=== PATIENT | male | born 1945 | race Caucasian/White ===

== ENCOUNTER 2022-12-05 11:09 | Outpatient (NON) | payer MEDICARE, SELFPAY ==
[2022-12-05 11:29] LABS: Basophils Absolute Auto 0.03 K/mm3 (0.00-0.10); Basophils Percent Auto 0.4 % (0.0-1.0); Eosinophils Percent Auto 2.8 % (1.0-6.0); Hematocrit 47.2 % (37.0-46.0); Hemoglobin 15.7 g/dL (12.4-15.3); Immature Granulocyte Absolute 0.02 K/mm3 (0.00-0.00); Immature Granulocyte Percent A 0.3 % (0.0-0.0); Lymphocytes Absolute Auto 1.16 K/mm3 (1.10-4.50); Lymphocytes Percent Auto 16.4 % (18.0-42.0); Mean Corpuscular HGB Conc 33.3 g/dL (32.0-36.0); Mean Corpuscular Hemoglobin 31.2 pg (27.0-31.0); Mean Corpuscular Volume 93.8 fL (78.0-102.0); Mean Platelet Volume 10.1 fl (8.7-11.0); Monocytes Absolute Auto 0.61 K/mm3 (0.10-0.90); Monocytes Percent Auto 8.6 % (2.0-11.0); Neutrophils Percent Auto 71.5 % (50.0-70.0); Platelet Count Result 275 K/mm3 (150-420); Red Blood Count 5.03 M/mm3 (4.70-6.10); Red Cell Distribution Width 13.4 % (11.6-14.4); White Blood Count 7.1 K/mm3 (4.8-10.8)
[2022-12-05 11:52] LABS: Alanine Aminotransferase 8 U/L (16-63); Alkaline Phosphatase 98 U/L (46-116); Anion Gap 4 mmol/L (8-16); Aspartate Amino Transferase 11 U/L (15-37); Bilirubin,Total 0.3 mg/dL (0.00-1.00); Blood Urea Nitrogen 18 mg/dL (7-18); Calcium 8.4 mg/dL (8.5-10.1); Carbon Dioxide 29 mmol/L (21-32); Chloride 105 mmol/L (98-108); Estimated Glomerular Filt Rate > 60; Glucose 159 mg/dL (70-99); Osmolality Calculated 290 mOsm/kg (285-295); Potassium 3.8 mmol/L (3.5-5.1); Sodium 138 mmol/L (136-145)
== END 2022-12-05 11:10 | disposition home or self-care (01) ==
LOC: CHSLAB 11:15
PROVIDERS: Visit Provider Physician Assistant
DX: E11.9 Type 2 diabetes mellitus without complications (principal); R60.9 Edema, unspecified
CPT/HCPCS: 36415; 80053; 85025

== ENCOUNTER 2024-07-19 09:59 | Inpatient (IN) | payer MEDICARE, MEDICAID, SELFPAY ==
--- NOTE | ~2024-07-19 | CT_ITS ---
EXAMINATION: CT abdomen pelvis wo con DATE: 07/19/2024 11:35 INDICATION: Constipation. Tympanic abdomen. TECHNIQUE: Computed tomography (CT) of the abdomen and pelvis was performed without intravenous contr ast. Automated exposure control And iterative reconstruction technique were employed. The dose-length product was 963.89 mGy-cm. COMPARISON: None FINDINGS: Very small bilateral posterior layering pleural effusions. Consolidation in the dependent and basilar aspect of the bilateral lower lobes and favor atelectasis over pneumonia. Greater centrally calcifie d nodules in both lower lobes and in the right middle lobe consistent with old granulomatous disease. Heart size is normal. Atherosclerotic coronary artery calcifications and change of prior median ster notomy and coronary artery bypass grafting. Aortic valve calcification. No pericardial effusion. Bila teral gynecomastia. Multiple calcified gallstones in the dependent aspect of the otherwise normal gallbladder with no wal l thickening or pericholecystic inflammatory stranding to suggest acute cholecystitis. Tiny hepatic c alcification consistent with old granulomatous disease. Spleen, pancreas and bilateral adrenal glands are normal. There is mild bilateral hydroureteronephrosis extending to the fluid-filled bladder with out evident obstructing stone or mass. Diffuse mild wall thickening of the bladder accounting for the degree of distention. There is prostatomegaly. To moderate-sized bilateral fat-containing inguinal h ernias, direct on the right and with indirect and direct components on the left. Large amount of colonic stool extending to the rectum where there is a 8.4 x 8.3 similar ball of stoo l. There is diffuse colonic wall thickening with distal predominance consistent with colitis most lik loretta stercoral colitis with differential including infectious, inflammatory or ischemic colitis. Gas a nd fluid scattered throughout the small bowel without herlinda dilation to suggest obstruction but which can be seen with enteritis or ileus. No free intraperitoneal gas or fluid. No pathologically enlarge d abdominal or pelvic lymphadenopathy. Large lipoma in the visualized posterior compartment of the left upper thigh which measures approxima tely 15 x 8 cm which extends around the sciatic nerve proximal hamstring muscles and tendons insertin g mass effect upon the posterior margin of the abductor compartment. Chronic appearing compression fr actures at T7, L3 and L5, each with moderate anterior vertebral body height loss. There is prominent heterotopic ossification extending proximally along the left iliopsoas tendon with asymmetric mild at rophy of the left psoas muscle and moderate fatty atrophy of the left iliac is muscle suggesting hete rotopic ossification related to chronic partial tear. IMPRESSION: 1. Diffuse colonic wall thickening which along with the large amount of stool in the colon has a dist al predominance suggestive of constipation with stercoral colitis. Differential would include infecti ous, inflammatory or or less likely ischemic colitis. 2. Mild bilateral hydronephrosis along with mild wall thickening in the distended bladder suggesting sequela of chronic outlet obstruction from the enlarged prostate. 3. Cholelithiasis. 4. Very small bilateral pleural effusions with consolidation in the dependent lower lobes with appear ance favoring atelectasis over pneumonia. 5. Partially visualized. Large lipoma at the posterior proximal left thigh. 6. Moderate-sized bilateral fat-containing inguinal hernias. Reviewed, dictated and finalized at location A. IMPRESSION: 1. Diffuse colonic wall thickening which along with the large amount of stool i n the colon has a distal predominance suggestive of constipation with stercoral colitis. Dif
--- NOTE | ~2024-07-19 | US_ITS ---
EXAMINATION: US renal BI DATE: 07/19/2024 15:27 INDICATION: Acute kidney injury. TECHNIQUE: Multiple ultrasound grayscale images of the kidneys were obtained. COMPARISON: CT abdomen and pelvis 07/19/2024 FINDINGS: The right kidney measures 12.3 x 6.4 x 5.3 cm. The left kidney measures 9.6 x 4.8 x 4.4 cm. The kidne ys demonstrate normal parenchymal echogenicity. There is no hydronephrosis. The bladder is decompress ed by a Chambers catheter. IMPRESSION: 1. Normal kidney sizes. No hydronephrosis. Reviewed, dictated and finalized at location E.
--- NOTE | ~2024-07-19 | CT_ITS ---
EXAMINATION: CT brain wo con DATE: 07/20/2024 08:47 INDICATION: Encephalopathy. TECHNIQUE: Computed tomography (CT) of the head was performed without intravenous contrast. The mA wa s adjusted according to patient size. Iterative reconstruction technique was employed. The dose-lengt h product was 681.00 mGy-cm. COMPARISON: None FINDINGS: There are scattered areas of low attenuation in the cerebral white matter, which is within normal limits for the patient's age. There is no intracranial hemorrhage, acute infarction, or abnorm al intracranial mass lesion. The ventricles are normal in size. There is mild mucosal thickening in t he paranasal sinuses. The mastoid air cells are normal. The orbits are normal. There is cerumen in th e external auditory canals. IMPRESSION: 1. Normal aging brain. Reviewed, dictated and finalized at location A. IMPRESSION: 1. Normal aging brain.
[2024-07-19 09:58] VITALS: BP 133/81; PULSE 96; RESP 26; TEMP 36.6; O2SAT 96
--- NOTE | 2024-07-19 10:17 | ED.ABDPAIN ---
HPI - Abdominal Pain General Chief Complaint: Abdominal Pain Stated Complaint: abd pain Time Seen by Provider: 07/19/24 10:00 History of Present Illness HPI narrative: 78-year-old male presented to the emergency department for evaluation for abdominal distention and constipation. halfway states that the patient has not had a significant bowel movement since Saturday. Patient had been complaining of pain but is not complaining of any pain upon arrival to the emergency department. Patient is A&O x1 and is at his normal mental baseline per EMS and intermediate Related Data Home Medications Medication Instructions Recorded Confirmed Acidophilus 1 tablet BYMOUTH BID 07/19/24 07/19/24 acetaminophen 650 mg tablet 650 mg PO Q6H PRN Pain 07/19/24 07/19/24 albuterol sulfate 90 mcg/actuation 1 inh inhalation Q6H PRN Shortness 07/19/24 07/19/24 aerosol inhaler Of Breath aspirin 81 mg tablet 81 mg PO DAILY 07/19/24 07/19/24 atorvastatin 40 mg tablet 40 mg PO DAILY 07/19/24 07/19/24 benzonatate 100 mg capsule 100 mg PO Q8H PRN Cough 07/19/24 07/19/24 furosemide 40 mg tablet 40 mg PO DAILY 07/19/24 07/19/24 insulin glargine 100 unit/mL (3 18 unit subcut QPM 07/19/24 07/19/24 mL) subcutaneous pen (Lantus Solostar U-100 Insulin) insulin lispro 100 unit/mL 1 sliding scale dose subcut 07/19/24 07/19/24 subcutaneous solution (Humalog USEASDIRECTD U-100 Insulin) insulin lispro 100 unit/mL 4 unit subcut AC 07/19/24 07/19/24 subcutaneous solution (Humalog U-100 Insulin) melatonin 3 mg tablet 3 mg PO HS 07/19/24 07/19/24 Allergies Allergy/AdvReac Type Severity Reaction Status Date / Time No Known Allergies Allergy Verified 07/19/24 11:36 Review of Systems Review of Systems: ROS unobtainable: Yes unobtainable due to medical condition PMFSH Past Medical History Medical History Hyperlipidemia Insulin dependent type 2 diabetes mellitus Social History Social History (Updated 07/19/24 @ 13:39 by Meena Perez PA-C) Social History: Surrogate medical decision maker: Code status: Do not resuscitate. Smoking status: Unknown if ever smoked Alcohol intake: never Substance use: never Substance use type: does not use Spiritual care concerns: No Exam Narrative: APPEARANCE: Well appearing, no pain, no distress, well-nourished. HEAD: normocephalic, atraumatic. EYES: PERRLA/EOMI, conjunctivae clear. NOSE: Normal no drainage EARS:TMS clear with good light reflex. THROAT: Pharynx clear, no exudate. NECK: Supple. No adenopathy, no masses. RESPIRATORY: Airway patent, respirations nonlabored. Clear to auscultation bilaterally, no rales, rhonchi, wheezing. CARDIOVASCULAR: Regular rate and rhythm without murmurs rubs or gallops. ABDOMINAL: Tympanic abdomen, nontender to, no peritonitis Rectal exam: Large stool ball. Large amount of stool was digitally disimpacted MUSCULOSKELETAL: Moves all extremities. Strength/ROM intact, No edema, No calf tenderness. NEURO: Alert. Cranial nerves II through XII intact. Grossly intact SKIN: Warm, dry. Normal Color Procedures Rectal Disimpaction Rectal Disimpaction #1: Rectal Disimpaction Time: 10:00 Time out performed rectal disimpaction: Yes Indication: fecal impaction Procedural Sedation: No Sedation/Analgesia: none Technique: manual disimpaction with gloved finger Result: significant stool output Patient Tolerated Procedure: well and no complications Complications: none Rectal Disimpaction #2: Rectal Disimpaction Time: 10:33 Time out performed rectal disimpaction: Yes Indication: fecal impaction Procedural Sedation: Yes Sedation/Analgesia: none Technique: manual disimpaction with gloved finger Result: significant stool output Patient Tolerated Procedure: well Complications: none Course Cours
[2024-07-19 11:10] LABS: Basophils Percent Auto 0.1 % (0.2-1.2); Immature Granulocyte Absolute 0.14 K/mm3 (0.00-0.031); Immature Granulocyte Percent A 0.6 % (0-0.5); Lymphocytes Absolute Auto 0.65 K/mm3 (0.9-3.2); Lymphocytes Percent Auto 2.8 % (18.3-44.2); Mean Corpuscular HGB Conc 33.3 g/dl (32-36); Mean Corpuscular Hemoglobin 29.6 pg (26-34); Mean Corpuscular Volume 88.9 fl (80-100); Mean Platelet Volume 10.8 fl (7.4-10.4); Monocytes Absolute Auto 1.6 K/mm3 (0.1-0.6); Monocytes Percent Auto 6.6 % (2.6-8.5); Neutrophils Percent Auto 89.9 % (45.5-73.1); Platelet Count Result 443 k/mm3 (150-375); Red Blood Count 5.06 M/mm3 (4.6-6.20); Red Cell Distribution Width 16.5 % (11.5-14.5); White Blood Count 23.4 K/mm3 (4.5-10.0)
[2024-07-19 11:20] LABS: INR 1.2; Prothrombin Time 15.7 Seconds (11.1-14.7)
[2024-07-19 11:22] LABS: Lactic Acid Reflex 2.8 mmol/L (0.7-2.0); Partial Thromboplastin Time 36.3 Seconds (22.3-36.8)
[2024-07-19 11:23] LABS: Alanine Aminotransferase 17 U/L (6-50); Alkaline Phosphatase 116 U/L (38-126); Anion Gap 15 mmol/L (4-12); Aspartate Amino Transferase 37 U/L (17-59); Bilirubin,Total 0.6 mg/dL (0.2-1.3); Blood Urea Nitrogen 103 mg/dL (9-20); Calcium 8.5 mg/dL (8.4-10.2); Carbon Dioxide 29 mmol/L (22-30); Chloride 97 mmol/L (98-107); Estimated Glomerular Filt Rate 11; Glucose 121 mg/dL (65-110); Potassium 4.1 mmol/L (3.4-5.0); Sodium 141 mmol/L (137-145)
[2024-07-19 11:36] VITALS: BP 109/57; PULSE 86; RESP 15; O2SAT 99
[2024-07-19] MEDS: SODIUM CHLORIDE 0.9% IV 1,000 ML 999 ML IV CONT (11:37)
[2024-07-19 13:03] VITALS: BP 111/55; PULSE 88; RESP 16; TEMP 36.4; O2SAT 99
--- NOTE | 2024-07-19 13:35 | PM.IMHP ---
H&P: HPI History of Present Illness Date/Time: 07/19/24 13:35 Chief Complaint: Abdominal pain. Narrative: This is an 78-year-old male with dementia, Parkinson's, insulin-dependent diabetes, hypertension, and hyperlipidemia who presented to the emergency department via EMS from [facility] for evaluation of abdominal pain. He is alert and oriented x1 at baseline and is unable to provide an accurate history. Thus almost all of the following is obtained via a review of his EMR as well as information obtained from the paperwork that accompanied him today. He has never been see this facility however. Staff report he has not had a bowel movement since Saturday and his abdomen seems to be distended and tender. There were no reports of fever, vomiting, diarrhea, hematuria, falls, or trauma. At the time my evaluation he is resting comfortably and voices no complaints. He says a few words here and there but does not answer questions appropriately. He denies pain at this time. In the ED: He was afebrile on arrival with stable vital signs. Labs were significant for a WBC count of 23.4, hemoglobin 15.0, BUN 103, creatinine 5.20, lactic acid 2.8. CT of the abdomen and pelvis showed diffuse colonic wall thickening with a large amount of stool in the colon suggestive of constipation with stercoral colitis, mild bilateral hydronephrosis, and cholelithiasis. He received a soapsuds enema and was manually disimpacted per ED physician. Urinary catheter was inserted as he was retaining greater than 600 mL of urine. He was started on ceftriaxone and metronidazole for possible colitis and is being admitted in this setting for further treatment. Review of Systems Review of Systems: Unable to obtain accurately given chronic underlying dementia. 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 Code status: Do not resuscitate. Smoking status: Unknown if ever smoked Alcohol intake: never Substance use: never Substance use type: does not use Spiritual care concerns: No Meds Home Medications and Allergies Home Medications Medication Instructions Recorded Confirmed Type Acidophilus 1 tablet BYMOUTH BID 07/19/24 07/19/24 History acetaminophen 650 mg tablet 650 mg PO Q6H PRN Pain 07/19/24 07/19/24 History albuterol sulfate 90 mcg/actuation 1 inh inhalation Q6H PRN Shortness 07/19/24 07/19/24 History aerosol inhaler Of Breath aspirin 81 mg tablet 81 mg PO DAILY 07/19/24 07/19/24 History atorvastatin 40 mg tablet 40 mg PO DAILY 07/19/24 07/19/24 History benzonatate 100 mg capsule 100 mg PO Q8H PRN Cough 07/19/24 07/19/24 History furosemide 40 mg tablet 40 mg PO DAILY 07/19/24 07/19/24 History insulin glargine 100 unit/mL (3 18 unit subcut QPM 07/19/24 07/19/24 History mL) subcutaneous pen (Lantus Solostar U-100 Insulin) insulin lispro 100 unit/mL 1 sliding scale dose subcut 07/19/24 07/19/24 History subcutaneous solution (Humalog USEASDIRECTD U-100 Insulin) insulin lispro 100 unit/mL 4 unit subcut AC 07/19/24 07/19/24 History subcutaneous solution (Humalog U-100 Insulin) melatonin 3 mg tablet 3 mg PO HS 07/19/24 07/19/24 History Allergies Allergy/AdvReac Type Severity Reaction Status Date / Time No Known Allergies Allergy Verified 07/19/24 11:36 Vital Signs Vital Signs - 24 hr 07/19/24 09:58 07/19/24 11:36 07/19/24 13:03 Temperature 97.8 F 97.6 F Pulse Rate 96 86 88 Respiratory Rate 26 H 15 16 Blood Pressure 133/81 109/57 L 111/55 L Pulse Oximetry 96
[2024-07-19 13:37] LABS: Toxigenic C. Diff NEGATIVE (NEGATIVE)
[2024-07-19 14:00] VITALS: BP 110/60; PULSE 84; RESP 16; TEMP 36.4; O2SAT 98
[2024-07-19 14:09] LABS: Reflex Lactic Acid Yes or No Add Lactic
[2024-07-19] MEDS: metroNIDAZOLE 500 MG/ISO 100ML 500 MG/100 ML BAG 100 MG IVPB ×2 (15:36→22:19)
[2024-07-19] MEDS: SODIUM CHLORIDE 0.9% IV 1,000 ML 125 ML IV CONT (15:37)
[2024-07-19 15:50] LABS: Lactic Acid Reflex 1.2 mmol/L (0.7-2.0)
[2024-07-19 16:22] LABS: Glucose Point of Care 139 mg/dl (65-105)
[2024-07-19 20:04] LABS: Glucose Point of Care 108 mg/dl (65-105)
[2024-07-19 20:40] LABS: Lactic Acid 1.1 mmol/L (0.7-2.0)
[2024-07-19 21:10] VITALS: BP 111/44; PULSE 83; RESP 14; TEMP 36.4; O2SAT 97
[2024-07-19] MEDS: HEPARIN SODIUM 5,000 UNITS/ML VIAL 5000 UNITS SUB-Q (22:19)
[2024-07-19 23:37] LABS: Anion Gap 10 mmol/L (4-12); Blood Urea Nitrogen 79 mg/dL (9-20); Calcium 7.5 mg/dL (8.4-10.2); Carbon Dioxide 26 mmol/L (22-30); Chloride 106 mmol/L (98-107); Estimated CRCL calculation 21 ml/min; Estimated Glomerular Filt Rate 22; Glucose 119 mg/dL (65-110); Magnesium 3.3 mg/dL (1.6-2.3); Sodium 142 mmol/L (137-145)
[2024-07-20] MEDS: SODIUM CHLORIDE 0.9% IV 1,000 ML 125 ML IV CONT ×2 (02:01→14:47)
[2024-07-20] MEDS: metroNIDAZOLE 500 MG/ISO 100ML 500 MG/100 ML BAG 100 MG IVPB ×3 (05:24→20:52)
[2024-07-20 05:28] VITALS: BP 102/48; PULSE 88; RESP 18; TEMP 36.5; O2SAT 97
[2024-07-20 06:52] LABS: Hematocrit 39.1 % (42.0-52.0); Hemoglobin 12.3 g/dL (14.0-18.0); Mean Corpuscular HGB Conc 31.5 g/dl (32-36); Mean Corpuscular Hemoglobin 28.7 pg (26-34); Mean Corpuscular Volume 91.4 fl (80-100); Mean Platelet Volume 10.2 fl (7.4-10.4); Platelet Count Result 363 k/mm3 (150-375); Red Blood Count 4.28 M/mm3 (4.6-6.20); Red Cell Distribution Width 16.3 % (11.5-14.5); White Blood Count 13.9 K/mm3 (4.5-10.0)
[2024-07-20 07:05] LABS: Anion Gap 10 mmol/L (4-12); Blood Urea Nitrogen 56 mg/dL (9-20); Calcium 7.4 mg/dL (8.4-10.2); Carbon Dioxide 26 mmol/L (22-30); Chloride 109 mmol/L (98-107); Estimated CRCL calculation 37 ml/min; Estimated Glomerular Filt Rate 42; Glucose 122 mg/dL (65-110); Magnesium 3.1 mg/dL (1.6-2.3); Sodium 145 mmol/L (137-145)
[2024-07-20 07:56] LABS: Glucose Point of Care 104 mg/dl (65-105)
--- NOTE | 2024-07-20 08:50 | PM.IMPN ---
Progress Note: A&P Assessment and Plan (1) Acute kidney injury: Code(s): N17.9 - Acute kidney failure, unspecified Status: Acute (2) Colitis: Code(s): K52.9 - Noninfective gastroenteritis and colitis, unspecified Status: Acute (3) Constipation: Code(s): K59.00 - Constipation, unspecified Status: Acute (4) Elevated lactic acid level: Code(s): R79.89 - Other specified abnormal findings of blood chemistry Status: Acute (5) Insulin dependent type 2 diabetes mellitus: Code(s): E11.9 - Type 2 diabetes mellitus without complications; Z79.4 - [facility] (current) use of insulin Status: Acute (6) Hypertension: Code(s): I10 - Essential (primary) hypertension Status: Acute (7) Dementia: Code(s): F03.90 - Unspecified dementia, unspecified severity, without behavioral disturbance, psychotic disturbance, mood disturbance, and anxiety Status: Acute (8) Parkinsons disease: Code(s): G20.A1 - Parkinson's disease without dyskinesia, without mention of fluctuations Status: Acute Plan The patient presented to the emergency department for evaluation of abdominal pain, distension, and no bowel movement since Saturday as detailed in HPI. Labs, imaging, EKG, and all reports were personally reviewed. CT scan shows constipation with evidence of colitis, possible stercoral colitis. Lactic acid level is above the upper limit of normal however ischemic colitis seems less likely. He will be covered with antibiotics however given leukocytosis. Blood and stool cultures ordered. He was manually disimpacted in the ED and received a soapsuds enema. Start daily MiraLax and stool softener. He has an acute kidney injury, in part due to obstructive uropathy with urinary retention and findings of probable chronic outlet obstruction on CT scan. Chambers catheter has been inserted. He will be hydrated overnight with close monitoring of volume status and renal function. Renal ultrasound ordered for a.m. All medications will be renally dosed and nephrotoxic agents will be avoided. Renal ultrasound ordered. Vital signs were reviewed and they are stable. Continue basal insulin. Initiate sliding scale insulin, Accu-Cheks, and hypoglycemic protocol. Time Spent With Patient Time with patient: Greater than 35 minutes Subjective Date/time seen: 07/20/24 08:50 Interval history: Narrative retrieved from H/P This is an 78-year-old male with dementia, Parkinson's, insulin-dependent diabetes, hypertension, and hyperlipidemia who presented to the emergency department via EMS from [facility] for evaluation of abdominal pain. He is alert and oriented x1 at baseline and is unable to provide an accurate history. Thus almost all of the following is obtained via a review of his EMR as well as information obtained from the paperwork that accompanied him today. He has never been see this facility however. Staff report he has not had a bowel movement since Saturday and his abdomen seems to be distended and tender. There were no reports of fever, vomiting, diarrhea, hematuria, falls, or trauma. At the time my evaluation he is resting comfortably and voices no complaints. He says a few words here and there but does not answer questions appropriately. He denies pain at this time. In the ED: He was afebrile on arrival with stable vital signs. Labs were significant for a WBC count of 23.4, hemoglobin 15.0, BUN 103, creatinine 5.20, lactic acid 2.8. CT of the abdomen and pelvis showed diffuse colonic wall thickening with a large amount of stool in the colon suggestive of constipation with stercoral colitis, mild bilateral hydronephrosis, and cholelithiasis. He received a soapsuds enema and was manually disimpacted per ED physician. Urinary catheter was inserted as he was retaining greater than 600 mL of urine. He was started on ceftriaxone and metronidazole for possible colitis and is being admitted in this setting for
[2024-07-20] MEDS: ATORVASTATIN 40 MG TABLET PO (10:03)
[2024-07-20] MEDS: ACIDOPHILUS/BULGARICUS CHEWABLE TABLET 1 TABLET BY MOUTH ×2 (10:03→17:47)
[2024-07-20] MEDS: ASPIRIN 81 MG ENTERIC TABLET PO (10:03)
[2024-07-20] MEDS: HEPARIN SODIUM 5,000 UNITS/ML VIAL 5000 UNITS SUB-Q ×2 (10:04→20:51)
[2024-07-20 11:40] LABS: Glucose Point of Care 150 mg/dl (65-105)
[2024-07-20] MEDS: INSULIN ASPART (*BKC) 100 UNITS/ML SUB-Q (12:15)
[2024-07-20 13:39] VITALS: BMI 24.3
[2024-07-20 13:41] LABS: Hemoglobin A1C 7.7 % (<5.7)
[2024-07-20 14:00] VITALS: BP 96/42; PULSE 74; RESP 20; TEMP 36.4; O2SAT 98
[2024-07-20] MEDS: POTASSIUM CHLORIDE 20 MEQ PACKET (FOR LIQUID) 40 MEQ PO (14:37)
[2024-07-20 16:06] LABS: Glucose Point of Care 81 mg/dl (65-105)
[2024-07-20 19:52] LABS: Glucose Point of Care 102 mg/dl (65-105)
[2024-07-20 20:00] VITALS: BP 92/51; PULSE 83; RESP 18; TEMP 36.3; O2SAT 99
[2024-07-20] MEDS: MELATONIN 3 MG TABLET PO (20:51)
[2024-07-20] MEDS: DOCUSATE SODIUM 100 MG CAPSULE PO (20:52)
[2024-07-21] VITALS (7 sets, daily range): BP systolic 112–131; BP diastolic 46–67; PULSE 65–76; RESP 17–18; TEMP 35.8–36.7; O2SAT 94–98
[2024-07-21] MEDS: SODIUM CHLORIDE 0.9% IV 1,000 ML 125 ML IV CONT ×2 (02:00→17:04)
[2024-07-21] MEDS: metroNIDAZOLE 500 MG/ISO 100ML 500 MG/100 ML BAG 100 MG IVPB ×3 (05:16→21:22)
[2024-07-21 06:52] LABS: Hematocrit 37.3 % (42.0-52.0); Hemoglobin 11.6 g/dL (14.0-18.0); Mean Corpuscular HGB Conc 31.1 g/dl (32-36); Mean Corpuscular Hemoglobin 28.6 pg (26-34); Mean Corpuscular Volume 92.1 fl (80-100); Mean Platelet Volume 10.1 fl (7.4-10.4); Platelet Count Result 344 k/mm3 (150-375); Red Blood Count 4.05 M/mm3 (4.6-6.20); White Blood Count 9.5 K/mm3 (4.5-10.0)
[2024-07-21 07:03] LABS: Anion Gap 7 mmol/L (4-12); Blood Urea Nitrogen 18 mg/dL (9-20); Calcium 7.4 mg/dL (8.4-10.2); Carbon Dioxide 26 mmol/L (22-30); Chloride 109 mmol/L (98-107); Estimated CRCL calculation 92 ml/min; Estimated Glomerular Filt Rate > 60; Glucose 93 mg/dL (65-110); Potassium 2.6 mmol/L (3.4-5.0); Sodium 142 mmol/L (137-145)
[2024-07-21 07:38] LABS: Glucose Point of Care 82 mg/dl (65-105)
--- NOTE | 2024-07-21 08:07 | PM.IMPN ---
Progress Note: A&P Assessment and Plan (1) Acute kidney injury: Code(s): N17.9 - Acute kidney failure, unspecified Status: Acute (2) Colitis: Code(s): K52.9 - Noninfective gastroenteritis and colitis, unspecified Status: Acute (3) Constipation: Code(s): K59.00 - Constipation, unspecified Status: Acute (4) Elevated lactic acid level: Code(s): R79.89 - Other specified abnormal findings of blood chemistry Status: Acute (5) Insulin dependent type 2 diabetes mellitus: Code(s): E11.9 - Type 2 diabetes mellitus without complications; Z79.4 - care home (current) use of insulin Status: Acute (6) Hypertension: Code(s): I10 - Essential (primary) hypertension Status: Acute (7) Dementia: Code(s): F03.90 - Unspecified dementia, unspecified severity, without behavioral disturbance, psychotic disturbance, mood disturbance, and anxiety Status: Acute (8) Parkinsons disease: Code(s): G20.A1 - Parkinson's disease without dyskinesia, without mention of fluctuations Status: Acute (9) Hypokalemia: Code(s): E87.6 - Hypokalemia Status: Acute Assessment and Plan: -very likely due to diarrhea. - will add tele, 40 meq IV plus schedule PO K - recheck at 1300 once Iv IS INFUSED - monitor closely - check MG and replaced as needed Plan The patient presented to the emergency department for evaluation of abdominal pain, distension, and no bowel movement since Saturday as detailed in HPI. Labs, imaging, EKG, and all reports were personally reviewed. CT scan shows constipation with evidence of colitis, possible stercoral colitis. Lactic acid level is above the upper limit of normal however ischemic colitis seems less likely. He will be covered with antibiotics however given leukocytosis. Blood and stool cultures ordered. He was manually disimpacted in the ED and received a soapsuds enema. Start daily MiraLax and stool softener. He has an acute kidney injury, in part due to obstructive uropathy with urinary retention and findings of probable chronic outlet obstruction on CT scan. Chambers catheter has been inserted. He will be hydrated overnight with close monitoring of volume status and renal function. Renal ultrasound ordered for a.m. All medications will be renally dosed and nephrotoxic agents will be avoided. Renal ultrasound ordered. Vital signs were reviewed and they are stable. Continue basal insulin. Initiate sliding scale insulin, Accu-Cheks, and hypoglycemic protocol. Time Spent With Patient Time with patient: Greater than 35 minutes Subjective Date/time seen: 07/21/24 08:07 Interval history: Narrative retrieved from H/P This is an 78-year-old male with dementia, Parkinson's, insulin-dependent diabetes, hypertension, and hyperlipidemia who presented to the emergency department via EMS from [facility] for evaluation of abdominal pain. He is alert and oriented x1 at baseline and is unable to provide an accurate history. Thus almost all of the following is obtained via a review of his EMR as well as information obtained from the paperwork that accompanied him today. He has never been see this facility however. Staff report he has not had a bowel movement since Saturday and his abdomen seems to be distended and tender. There were no reports of fever, vomiting, diarrhea, hematuria, falls, or trauma. At the time my evaluation he is resting comfortably and voices no complaints. He says a few words here and there but does not answer questions appropriately. He denies pain at this time. In the ED: He was afebrile on arrival with stable vital signs. Labs were significant for a WBC count of 23.4, hemoglobin 15.0, BUN 103, creatinine 5.20, lactic acid 2.8. CT of the abdomen and pelvis showed diffuse colonic wall thickening with a large amount of stool in the colon suggestive of constipation with stercoral colitis, mild bilateral hydronephrosis, and cholelit
[2024-07-21 08:46] LABS: Magnesium 2.6 mg/dL (1.6-2.3)
[2024-07-21] MEDS: MAGNESIUM OXIDE 400 MG TABLET PO (09:18)
[2024-07-21] MEDS: ACIDOPHILUS/BULGARICUS CHEWABLE TABLET 1 TABLET BY MOUTH ×2 (09:19→17:05)
[2024-07-21] MEDS: ASPIRIN 81 MG ENTERIC TABLET PO (09:19)
[2024-07-21] MEDS: INSULIN ASPART (*BKC) 100 UNITS/ML SUB-Q ×2 (09:19→17:04)
[2024-07-21] MEDS: POTASSIUM CHLORIDE 20 MEQ PACKET (FOR LIQUID) 40 MEQ PO (09:19)
[2024-07-21] MEDS: ATORVASTATIN 40 MG TABLET PO (09:20)
[2024-07-21] MEDS: HEPARIN SODIUM 5,000 UNITS/ML VIAL 5000 UNITS SUB-Q ×2 (09:21→21:14)
[2024-07-21] MEDS: POTASSIUM CHLORIDE INJ 40 MEQ in SODIUM CHLORIDE 0.9% IV 500 ML 130 MEQ IVPB (09:49)
[2024-07-21 11:51] LABS: Glucose Point of Care 74 mg/dl (65-105)
[2024-07-21 13:20] LABS: Potassium 3.3 mmol/L (3.4-5.0)
[2024-07-21 14:04] LABS: Glucose Point of Care 101 mg/dl (65-105)
[2024-07-21 16:13] LABS: Glucose Point of Care 157 mg/dl (65-105)
[2024-07-21 16:32] LABS: Potassium 3.4 mmol/L (3.4-5.0)
[2024-07-21] MEDS: INSULIN GLARGINE (*BKC) 100 UNITS/ML 18 UNITS SUB-Q (17:04)
[2024-07-21 21:03] LABS: Glucose Point of Care 154 mg/dl (65-105)
[2024-07-21] MEDS: MELATONIN 3 MG TABLET PO (21:14)
[2024-07-22] VITALS: PULSE 60
[2024-07-22] MEDS: SODIUM CHLORIDE 0.9% IV 1,000 ML 125 ML IV CONT (01:45)
[2024-07-22 04:00] VITALS: PULSE 60
[2024-07-22] MEDS: metroNIDAZOLE 500 MG/ISO 100ML 500 MG/100 ML BAG 100 MG IVPB (05:24)
[2024-07-22 06:00] VITALS: BP 125/54; PULSE 65; RESP 16; TEMP 36.9; O2SAT 94
[2024-07-22 06:37] LABS: Hematocrit 36.8 % (42.0-52.0); Hemoglobin 11.3 g/dL (14.0-18.0); Mean Corpuscular HGB Conc 30.7 g/dl (32-36); Mean Corpuscular Hemoglobin 28.4 pg (26-34); Mean Corpuscular Volume 92.5 fl (80-100); Mean Platelet Volume 10.2 fl (7.4-10.4); Platelet Count Result 347 k/mm3 (150-375); Red Blood Count 3.98 M/mm3 (4.6-6.20)
[2024-07-22 07:02] LABS: Anion Gap 6 mmol/L (4-12); Blood Urea Nitrogen 7 mg/dL (9-20); Carbon Dioxide 24 mmol/L (22-30); Chloride 109 mmol/L (98-107); Estimated CRCL calculation 108 ml/min; Estimated Glomerular Filt Rate > 60; Glucose 86 mg/dL (65-110); Potassium 3.4 mmol/L (3.4-5.0); Sodium 139 mmol/L (137-145)
[2024-07-22 07:50] LABS: Glucose Point of Care 80 mg/dl (65-105)
[2024-07-22 08:00] VITALS: PULSE 54
[2024-07-22] MEDS: polyethylene glycoL 3350 17 GM POWD.PACK PO (08:20)
[2024-07-22] MEDS: POTASSIUM CHLORIDE 20 MEQ PACKET (FOR LIQUID) 40 MEQ PO (08:20)
[2024-07-22] MEDS: MAGNESIUM OXIDE 400 MG TABLET PO (08:21)
[2024-07-22] MEDS: ASPIRIN 81 MG ENTERIC TABLET PO (08:21)
[2024-07-22] MEDS: DOCUSATE SODIUM 100 MG CAPSULE PO (08:21)
[2024-07-22] MEDS: ACIDOPHILUS/BULGARICUS CHEWABLE TABLET 1 TABLET BY MOUTH (08:21)
[2024-07-22] MEDS: ATORVASTATIN 40 MG TABLET PO (08:21)
[2024-07-22] MEDS: HEPARIN SODIUM 5,000 UNITS/ML VIAL 5000 UNITS SUB-Q (08:21)
--- NOTE | 2024-07-22 11:16 | PM.DS ---
DS: Admitting Diagnosis Discharge Date 07/22/2024 Admitting Diagnosis Abdominal pain. DS: Discharge Diagnosis Discharge Diagnosis (1) Acute kidney injury: Code(s): N17.9 - Acute kidney failure, unspecified Status: Acute Assessment and Plan: The patient presented to the emergency department for evaluation of abdominal pain, distension, and no bowel movement since Saturday as detailed in HPI. Labs, imaging, EKG, and all reports were personally reviewed. CT scan shows constipation with evidence of colitis, possible stercoral colitis. Lactic acid level is above the upper limit of normal however ischemic colitis seems less likely. He will be covered with antibiotics however given leukocytosis. Blood and stool cultures ordered. He was manually disimpacted in the ED and received a soapsuds enema. Start daily MiraLax and stool softener. He has an acute kidney injury, in part due to obstructive uropathy with urinary retention and findings of probable chronic outlet obstruction on CT scan. Chambers catheter has been inserted. He will be hydrated overnight with close monitoring of volume status and renal function. Renal us was negative, pt received fluids creat improved, pt eating and drinking, ok to dc back to the facility. Please note pt failed voiding trail on DC discharged with catheter insitu. pt will need urology follow up for urinary retention and enlarged prostate. pt had bowel movement, pt found to have a wound on his heel recommendations made to NH. (2) Colitis: Code(s): K52.9 - Noninfective gastroenteritis and colitis, unspecified Status: Acute Assessment and Plan: resolved (3) Constipation: Code(s): K59.00 - Constipation, unspecified Status: Acute Assessment and Plan: Resolved pt had bowel movement (4) Elevated lactic acid level: Code(s): R79.89 - Other specified abnormal findings of blood chemistry Status: Acute Assessment and Plan: Resolved (5) Insulin dependent type 2 diabetes mellitus: Code(s): E11.9 - Type 2 diabetes mellitus without complications; Z79.4 - long-term (current) use of insulin Status: Acute Assessment and Plan: Sugars are stable in hospital (6) Hypertension: Code(s): I10 - Essential (primary) hypertension Status: Acute Assessment and Plan: BP are stable in hospital (7) Dementia: Code(s): F03.90 - Unspecified dementia, unspecified severity, without behavioral disturbance, psychotic disturbance, mood disturbance, and anxiety Status: Acute Assessment and Plan: chronic problem (8) Parkinsons disease: Code(s): G20.A1 - Parkinson's disease without dyskinesia, without mention of fluctuations Status: Acute Assessment and Plan: chronic problem (9) Hypokalemia: Code(s): E87.6 - Hypokalemia Status: Acute Assessment and Plan: -very likely due to diarrhea. - will add tele, 40 meq IV plus schedule PO K - check MG and replaced as needed potassium and mg corrected in hospital Plan DS: Summary Hospital Course Hospital Course: The patient presented to the emergency department for evaluation of abdominal pain, distension, and no bowel movement since Saturday as detailed in HPI. Labs, imaging, EKG, and all reports were personally reviewed. CT scan shows constipation with evidence of colitis, possible stercoral colitis. Lactic acid level is above the upper limit of normal however ischemic colitis seems less likely. He will be covered with antibiotics however given leukocytosis. Blood and stool cultures ordered. He was manually disimpacted in the ED and received a soapsuds enema. Start daily MiraLax and stool softener. He has an acute kidney injury, in part due to obstructive uropathy with urinary retention and findings of probable chronic outlet obstruction on CT scan. Chambers catheter has been inserted. He will be hydrated overnight with close monitoring
[2024-07-22 11:31] LABS: Glucose Point of Care 119 mg/dl (65-105)
[2024-07-22 14:00] VITALS: BP 111/49; PULSE 69; RESP 16; TEMP 36.4; O2SAT 99
[2024-07-22 16:33] LABS: Glucose Point of Care 95 mg/dl (65-105)
== END 2024-07-22 16:50 | DRG 684 ==
LOC: ANHED 12:30 → ANH3MEDSUR 13:00
PROVIDERS: Nurse Practitioner; Physician Assistant; Admitting Provider Internal Medicine; Emergency Provider Emergency Medicine; PCP Emergency Medicine; Visit Provider Family Medicine
DX: N17.9 Acute kidney failure, unspecified (principal); K52.9 Noninfective gastroenteritis and colitis, unspecified; K59.00 Constipation, unspecified; N13.30 Unspecified hydronephrosis; I10 Essential (primary) hypertension; E87.6 Hypokalemia; E11.9 Type 2 diabetes mellitus without complications; E78.5 Hyperlipidemia, unspecified; L89.629 Pressure ulcer of left heel, unspecified stage; L89.619 Pressure ulcer of right heel, unspecified stage; K80.20 Calculus of gallbladder without cholecystitis without obstruction; R33.9 Retention of urine, unspecified; G20.A1 Parkinson's disease without dyskinesia, without mention of fluctuations; F02.80 Dementia in other diseases classified elsewhere, unspecified severity, without behavioral disturbance, psychotic disturbance, mood disturbance, and anxiety; Z79.82 Long term (current) use of aspirin; Z79.4 Long term (current) use of insulin
CPT/HCPCS: 36415; 70450; 74176; 76775; 80048; 80053; 82948; 83036; 83605; 83735; 84132; 84443; 85025; 85027; 85610; 85730; 87040; 87045; 87427; 87449; 87493; 96361; 96365; 99285; A9270; G0378; J0696; J1644; J1815; J1836; J3480; J7030; J7040